=== PATIENT | female | born 1990 | race Caucasian/White ===

== ENCOUNTER 2023-11-25 00:05 | Emergency (ER) | payer SELFPAY ==
[2023-11-25 00:07] VITALS: BP 131/82; PULSE 64; RESP 18; TEMP 36.6; O2SAT 94; BMI 37.2
[2023-11-25 00:10] VITALS: BP 131/82; PULSE 64; RESP 18; TEMP 36.6; O2SAT 94
--- NOTE | 2023-11-25 00:46 | EX.ED.DYSGE1 ---
HPI History of Present Illness Chief Complaint: Flank Pain Informant: patient Onset/Context/Timing Onset: Today Context: Gradual Onset Timing: Continuous Quality: Sharp, pressure Location: Bilateral flank area Worsened by: Nothing Relieved by: Nothing Narrative Narrative: Patient presents with bilateral flank pain that began today. Patient states she has a history of kidney disease. Patient states that it is sharp and pressure. Patient states that nothing makes it better and nothing makes it worse. Patient denies any dysuria or hematuria. Patient does admit to some urinary frequency. Patient admits to a low-grade fever of 100. Patient admits to some nausea but denies any vomiting. Patient denies any diarrhea. [facility] Medical History Hypokalemia Hypocalcemia Kidney stones Kidney disease Home Medications ?Medication ?Instructions ?Recorded ?Last Taken ?Type NK 11/25/23 Unknown History Allergy/AdvReac Type Severity Reaction Status Date / Time ibuprofen Allergy Unknown Other Verified 11/25/23 00:11 Surgical History no surgical history no surgical history Social History Smoking Status: Current every day smoker tobacco type: cigarettes ROS ROS ED Constitutional Constitutional ED: Reports fever(s); Denies chills Eyes Eyes: Denies blurry vision or change in vision ENT ENT ED: Denies rhinorrhea or sore throat Cardiovascular Cardiovascular: Denies chest pain or palpitations Respiratory/Chest Respiratory/Chest: Denies cough or dyspnea Gastrointestinal Gastrointestinal: Reports nausea; Denies vomiting Genitourinary Genitourinary ED: Reports urinary frequency; Denies dysuria or hematuria Musculoskeletal Musculoskeletal: Reports back pain; Denies neck pain Integumentary Denies abscess or rash Neurologic Neurologic: Denies headache(s) or weakness Allergic/Immunologic Allergic/Immunologic ED: Denies mouth swelling or urticaria EXAM Physical Exam Const Vital Signs: 11/25/23 00:07 11/25/23 00:10 11/25/23 02:07 Temperature 97.9 F 97.9 F Temperature Source Oral Oral Pulse Rate 64 64 51 L Respiratory Rate 18 18 14 Blood Pressure 131/82 H 131/82 H 114/55 L Blood Pressure Mean 98 98 74 Pulse Ox 94 94 98 Oxygen Delivery Method Room Air Room Air Room Air 11/25/23 03:00 11/25/23 04:53 11/25/23 04:54 Temperature 98.3 F Temperature Source Pulse Rate 61 58 L 57 L Respiratory Rate 18 18 18 Blood Pressure 123/53 H 127/57 H 127/57 H Blood Pressure Mean 76 80 80 Pulse Ox 97 98 98 Oxygen Delivery Method Room Air Room Air Positive well nourished and well developed General Appearance ED: well developed and NAD HEENT Reports moist mucous membranes Neck supple and no JVD Resp normal respiratory effort and clear to auscultation bilaterally Cardio regular rate and regular rhythm GI non-tender and non-distended Palpation: soft Back/Spine General Back: CVA tenderness bilateral Neuro oriented x3, CN's II-XII intact bilaterally and no sensory deficits noted Sensorium / Orientation: alert Motor Exam: strength 5/5 throughout Psych mental status grossly normal MDM MDM MDM Narrative Medical decision making narrative: Differential diagnosis includes urinary tract infection, pyelonephritis, ureteral calculus, gastroenteritis, dehydration, electrolyte abnormality, viral illness, and acute kidney injury. CBC will be obtained to assess for leukocytosis and anemia. Comprehensive metabolic profile will be obtained to assess for hepatic function, renal function, and electrolyte abnormality. Urinalysis will be obtained to assess for urinary tract infection. Serum hCG will be obtained to assess for . COVID-19, influenza, and RSV PCR will be obtained to assess for viral illness. CT scan of the abdomen and pelvis will be obtained to assess for pyelonephritis and ureteral calculus. Lab Data Attestation: I reviewed the patient's lab results. Lab results narrative: CBC was reviewed and was within normal limits. Comprehensive metabolic profile was reviewed. BUN was 71 and creatinine was 2.86. Potassium was slightly low at 3.2. AST was slightly elevated at 63 and ALT was slightly elevated at 80. There are no prior labs available for comparison. Serum hCG was reviewed and was negative. Urinalysis was reviewed. Leukocyte esterase was 100 but there were 0-5 white blood cells rare bacteria and negative nitrites. COVID-19 PCR was reviewed and was negative. Influenza PCR was reviewed and was negative for influenza A and influenza B. RSV PCR was reviewed and was negative. Labs: Laboratory Results - last 24 hr 11/25/23 11/25/23 11/25/23 00:18 01:12 04:52 WBC 5.4 RBC 4.21 Hgb 12.7 Hct 39.4 MCV 93.6 MCH 30.2 MCHC 32.2 RDW Std Deviation 45.9 H RDW Coeff of Lilli 13.5 Plt Count 295 MPV 9.9 Immature Gran % (Auto) 0.200 Neut % (Auto) 49.1 Lymph % (Auto) 28.8 [place] % (Auto) 11.4 H Eos % (Auto) 9.9 H Baso % (Auto) 0.6 Absolute Neuts (auto) 2.6 Absolute Lymphs (auto) 1.54 Nucleated RBC % 0 Sodium 137 142 Potassium 3.2 L 3.1 L Chloride 102 109 H Carbon Dioxide 30.0 25.0 Anion Gap 5 8 BUN 71 H 66 H Creatinine 2.86 H 2.50 H Estim Creat Clear Calc 36.90 42.22 Est GFR (MDRD) Af Amer 25 L 29 L Est GFR (MDRD) Non-Af 20 L 24 L BUN/Creatinine Ratio 24.8 H 26.4 H Glucose 95 97 Calcium 8.4 L 7.7 L Total Bilirubin 0.60 AST 63 H ALT 80 H Alkaline Phosphatase 65 Total Protein 7.8 Albumin 3.2 Globulin 4.6 H Albumin/Globulin Ratio 0.7 L Serum , Qual NEGATIVE Urine Color Yellow Urine Clarity Clear Urine pH 6.5 Ur Specific [place] 1.010 Urine Protein 15 H Urine Glucose (UA) Normal Urine Ketones Negative Urine Occult Blood Negative Urine Nitrite Negative Urine Bilirubin Negative Urine Urobilinogen Normal Ur Leukocyte Esterase 100 H Urine RBC 0 SEEN Urine WBC 0-5 SEEN Ur Squamous Epith Cells 0 SEEN Urine Bacteria RARE Urine Mucus 0 SEEN Radiography Diagnostic Testing: Clinical Impression(s) from Imaging Studies Abdomen/Pelvis CT 11/25/23 00:47 IMPRESSION: 1. 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 No definite demonstration of calculi within the renal collecting systems. No evidence for ureteral calculi or hydronephrosis. 2. Mildly enlarged periaortic lymph nodes. 3. More prominent enlargement of some lymph nodes along the anterior pelvic side wall, underlying inguinal region. 4. Mild splenomegaly. 5. Hepatomegaly. 6. Mild mural thickening of the urinary bladder may be artifactual limited distention or may represent cystitis. Electronically Signed: Gregory Payne MD at 2:53 EDT , CT scan of the abdomen pelvis was obtained. There are mildly enlarged periaortic lymph nodes. There are numerous foci of medullary nephrocalcinosis in both kidneys which may be associated with medullary sponge kidneys. There is no ureteral calculus noted. There is no hydronephrosis. There is some enlargement of the lymph nodes along the anterior pelvic sidewall and underlying inguinal area. There is mild thickening of the urinary bladder. This was interpreted by the radiologist and was also independently reviewed by myself. Treatment and Re-Evaluation :: Smoking cessation was discussed. Patient was given IV fluids, morphine, and Zofran. Patient was advised of her findings. Patient tells me that her kidney function tests have never been that high before. Patient was given more IV fluids. Patient was advised that she may need to be admitted to the hospital for further hydration and further evaluation of her kidney disease. Case was discussed with the hospitalist. He recommended repeating the basic metabolic profile after 2 L of normal saline. This was ordered. Patient's creatinine improved to 2.5. And BUN improved to 66. Patient was instructed to continue drinking plenty of fluids. Patient was instructed to follow-up with her primary care physician in 3 to 5 days. Patient was also given a referral for nephrology. Patient was instructed to return if worse in any way. Patient understood and was agreeable with the plan. All questions were answered. Discharge Plan Triage Chief Complaint: Flank Pain ED Provider: Gigi Pascal Dx/Rx/DC Orders Clinical Impression: Acute kidney injury, Hypokalemia, Tobacco use disorder Instructions: ED Chronic Kidney Disease (CKD), ED Dehydration (Adult), ED Flank Pain, Uncertain Cause Prescriptions: No Action NK Primary Care Provider: Care Physician,No Primary Referrals: Gabriel Robles MD [Med Staff - Consulting] - Cristine Farris MD [Med Staff - Customer Support Specialist] - 3-5 Days Care Physician,No Primary [Primary Care Provider] - Print Language: [place]an Disposition Disposition: Home, Self Care
--- NOTE | 2023-11-25 00:47 | CT_ITS ---
EXAM: CT ABDOMEN AND PELVIS WITHOUT INTRAVENOUS CONTRAST CLINICAL INDICATION: flank pain flank pain TECHNIQUE: Helically acquired images were obtained of the abdomen and pelvis without intravenous contrast. This CT exam was performed using one or more of the following dose reduction techniques: automated exposure control, adjustment of the mA and/or kV according to patient size, and/or use of iterative reconstruction technique. RADIATION DOSE: CTDIvol = 13.68 mGy, DLP = 676.53 mGy-cm COMPARISON: No relevant prior studies available. FINDINGS: LOWER THORAX: Unremarkable. Lung bases are clear. No cardiomegaly. No significant pericardial effusion. ABDOMEN: LIVER: Unremarkable. Homogeneous. GALLBLADDER AND BILE DUCTS: Unremarkable. No calcified gallstones. No gallbladder distention or wall edema. No intra- or extrahepatic biliary ductal dilation. PANCREAS: Unremarkable. No focal cystic mass. SPLEEN: The spleen is mildly enlarged. The spleen is enlarged. ADRENALS: Unremarkable. No nodules. KIDNEYS AND URETERS: There are numerous foci of medullary nephrocalcinosis in the kidneys bilaterally, which may be associated with medullary sponge kidneys. There is no definite demonstration of calculi within the renal collecting systems. There is no demonstrated ureteral kyphosis or hydronephrosis. Normal renal size and position. STOMACH AND BOWEL: Unremarkable. No stomach or bowel distention. No focal inflammatory change. PELVIS: APPENDIX: A normal-appearing appendix is seen on axial images 128-137. BLADDER: There is mild diffuse mural thickening of the urinary bladder which may be artifact of limited distention or may represent cystitis.. REPRODUCTIVE: Unremarkable as visualized. No mass. ABDOMEN and PELVIS: INTRAPERITONEAL SPACE: Unremarkable. No ascites or other fluid collection. No free air. BONES/JOINTS: There are no visualized acute osseous abnormalities. SOFT TISSUES: Unremarkable. No discrete abdominal or pelvic wall hernia. VASCULATURE: Unremarkable. Abdominal aorta is non-dilated. LYMPH NODES: There are enlarged periaortic retroperitoneal lymph nodes short axis diameters ranging up to 1.3 cm. There are enlarged retroperitoneal lymph nodes along the right pelvic sidewall underlying the inguinal region, with short axis diameters ranging up to 2.[address]/Abdomen/Pelvis without Cont IMPRESSION: 1. 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 No definite demonstration of calculi within the renal collecting systems. No evidence for ureteral calculi or hydronephrosis. 2. Mildly enlarged periaortic lymph nodes. 3. More prominent enlargement of some lymph nodes along the anterior pelvic side wall, underlying inguinal region. 4. Mild splenomegaly. 5. Hepatomegaly. 6. Mild mural thickening of the urinary bladder may be artifactual limited distention or may represent cystitis. Electronically Signed: Gregory Payne MD at 2:53 EDT ,
[2023-11-25 01:10] LABS: Absolute Lymphocyte Count 1.54 X10^3/uL (0.83-4.51); Absolute Neutrophil Count 2.6 X10^3/uL (2.0-7.7); Basophil# 0.03 X10^3/uL; Basophil% 0.6 % (0-1); Eosinophil# 0.53 X10^3/uL; Eosinophils% 9.9 % (0-5); Hematocrit 39.4 % (37-47); Hemoglobin 12.7 g/dL (12.0-15.0); Lymphocyte # 1.54 X10^3/ul (0.83-4.51); Lymphocyte % 28.8 % (19-41); Mean Corp Hgb Conc 32.2 g/dL (32-36); Mean Corpuscular Hgb 30.2 pg (27.0-32.0); Mean Corpuscular Volume 93.6 fL (81-99); Mean Platelet Vol. 9.9 fl (6.2-12.0); Monocyte# 0.61 X10^3/uL; Monocyte% 11.4 % (0-10); NRBC Flagged by Analyzer 0 % (0-5); Neutrophil # 2.63 X10^3/uL (2.7-7.7); Neutrophil % 49.1 % (47-70); Platelet Count 295 K/mm3 (150-450); RBC Distribution Width CV 13.5 % (11.6-14.6); RBC Distribution Width SD 45.9 fl (35.1-43.9); Red Blood Count 4.21 M/mm3 (4.2-5.4); White Blood Count 5.4 K/mm3 (4.4-11.0)
[2023-11-25] MEDS: Ondansetron 4 MG/2 ML Vial IV (01:14)
[2023-11-25] MEDS: Morphine 4 MG/ML Syringe IV (01:14)
[2023-11-25] MEDS: 0.9% Normal Saline (1000mL) 1,000 ML 1000 ML IV ×2 (01:14→03:32)
[2023-11-25 01:24] LABS: Mucous, Urine 0 SEEN /hpf (<or=2+); Red Blood Cells-Urine 0 SEEN /hpf (0-5); Squamous Epithelial Cells - UA 0 SEEN /hpf (5-10)
[2023-11-25 01:25] LABS: Internal QC Validated? YES +Cl - CLEAR BKGD; Pregnancy, Serum, hCG Quali. NEGATIVE Negative
[2023-11-25 01:27] LABS: Color, Urine Yellow (Yellow); Glucose, Dipstick Normal (Normal); Ketone-Dipstick Negative (Negative); Leukocyte Esterase-Dipstick 100 /ul (Negative); Nitrite-Dipstick Negative (Negative); Occult Blood-Urine Negative /ul (Negative); Protein-Dipstick 15 mg/dl (Negative); Urine Bilirubin Dipstick Negative (Negative); Urine Clarity Clear (Clear); Urine Urobilinogen Normal (Normal); Urine pH 6.5 (5.0 - 8.0)
[2023-11-25 01:31] LABS: ALB/GLOB Ratio 0.7 RATIO (0.9-2.4); AST(SGOT) 63 U/L (15-37); Alanine Aminotransfer ALT/SGPT 80 U/L (13-56); Albumin, Serum 3.2 g/dL (3.2-5.0); Alkaline Phosphatase 65 U/L (45-117); Anion Gap 5 (5-15); BUN 71 mg/dL (7-18); BUN/Creat Ratio 24.8 RATIO (10-20); Calcium,Total 8.4 mg/dL (8.5-10.1); Chloride 102 mmol/L (98-107); Creatinine, Serum 2.86 mg/dL (0.55-1.02); EST Glomerular Filtration Rate 20 mL/min (>60); Est Glom Filt Rate - Afr Amer 25 mL/min (>60); Globulin 4.6 g/dL (2.2-4.2); Glucose 95 mg/dL (74-106); Potassium 3.2 mmol/L (3.5-5.1); Protein, Total 7.8 g/dL (6.4-8.2); Sodium Level 137 mmol/L (136-145)
[2023-11-25 01:39] LABS: Bacteria RARE /hpf (None Seen); White Blood Cells 0-5 SEEN /hpf (0-5)
[2023-11-25 02:07] VITALS: BP 114/55; PULSE 51; RESP 14; O2SAT 98
[2023-11-25 03:00] VITALS: BP 123/53; PULSE 61; RESP 18; O2SAT 97
[2023-11-25] MEDS: Potassium Chloride Oral Tablet 20 MEQ 40 MEQ PO (03:33)
[2023-11-25 04:53] VITALS: BP 127/57; PULSE 58; RESP 18; TEMP 36.8; O2SAT 98
[2023-11-25 04:54] VITALS: BP 127/57; PULSE 57; RESP 18; O2SAT 98
[2023-11-25 05:15] LABS: Anion Gap 8 (5-15); BUN 66 mg/dL (7-18); BUN/Creat Ratio 26.4 RATIO (10-20); Calcium,Total 7.7 mg/dL (8.5-10.1); Chloride 109 mmol/L (98-107); EST Glomerular Filtration Rate 24 mL/min (>60); Est Glom Filt Rate - Afr Amer 29 mL/min (>60); Estimated Creatinine Clearance 42.22 ml/min; Glucose 97 mg/dL (74-106); Potassium 3.1 mmol/L (3.5-5.1); Sodium Level 142 mmol/L (136-145)
== END 2023-11-25 05:40 | disposition home or self-care (01) ==
PROVIDERS: Emergency Provider Emergency Medicine; Visit Provider Emergency Medicine
DX: N17.9 Acute kidney failure, unspecified (principal); E87.6 Hypokalemia; F17.210 Nicotine dependence, cigarettes, uncomplicated
CPT/HCPCS: 74176; 80048; 80053; 81001; 84703; 85025; 87631; 96361; 96374; 96375; 99283; J7030; A4216; J2405